=== PATIENT | male | born 1965 | race Hispanic/Latino ===

== ENCOUNTER → 2019-07-23 | Outpatient (CLI) | payer OTHER | END | disposition home or self-care (01) | LOC: RAH 11:18 | PROVIDERS: ATTEND Internal Medicine | DX: J44.9 Chronic obstructive pulmonary disease, unspecified (principal); Q63.1 Lobulated, fused and horseshoe kidney; Q27.8 Other specified congenital malformations of peripheral vascular system | CPT/HCPCS: 71250 ==

== ENCOUNTER → 2019-08-21 | Outpatient (CLI) | payer OTHER | END | disposition home or self-care (01) | LOC: EEVIPCON 11:44 → RAH 11:44 | PROVIDERS: ATTEND Internal Medicine | DX: S83.242A Other tear of medial meniscus, current injury, left knee, initial encounter (principal); M25.462 Effusion, left knee; X58.XXXA Exposure to other specified factors, initial encounter; Y93.89 Activity, other specified; Y92.89 Other specified places as the place of occurrence of the external cause; Y99.8 Other external cause status | CPT/HCPCS: 73721 ==

== ENCOUNTER 2019-10-22 05:24 | Day surgery (SDC) | payer OTHER ==
[2019-10-21 09:58] LABS: BASOPHILS % (AUTO) 0.5 % (0.0-5.0); EOSINOPHILS % (AUTO) 1.9 % (0.0-8.0); HEMATOCRIT 44.8 % (42-54); LYMPHOCYTES % (AUTO) 45.4 % (21.0-51.0); MEAN CORPUSCULAR HEMOGLOBIN 30.1 pg (27.0-33.0); MEAN CORPUSCULAR VOLUME 85.8 fL (79-99); MONOCYTES % (AUTO) 8.1 % (3.0-13.0); NEUTROPHILS % (AUTO) 43.9 % (40.0-77.0); PLATELET COUNT (AUTO) 208 K/uL (130-400); RED BLOOD CELL COUNT(AUTO) 5.22 MIL/uL (4.50-6.20); RED CELL DISTRIBUTION WIDTH 12.6 % (11.0-15.5); WHITE BLOOD COUNT (AUTO) 5.9 K/uL (4.8-10.8)
[2019-10-21 09:59] VITALS: BP 124/79
[2019-10-21 10:11] LABS: CREATININE 0.8 mg/dL (0.5-1.5); POTASSIUM 4.7 mmol/L (3.5-5.1)
[2019-10-21] MEDS: CEFAZOLIN SODIUM 1 GM VIAL IVP SCH (13:30)
[2019-10-22] VITALS (15 sets, daily range): BP systolic 120–139; BP diastolic 68–90
[~2019-10-22] VITALS: Ht 153.7 cm; Wt 70.0 kg
[~2019-10-22 05:24] MED LIST: LACTATED RINGERS 1000ML 1,000 ML IV SCH
[2019-10-22] MEDS ORDERED: SUCCINYLCHOLINE 200MG/10ML SYR ONE (09:28)
[2019-10-22] MEDS ORDERED: LIDOCAINE PF 2% 5ML ABBOJECT ONE ×2 (09:28→09:29)
[2019-10-22] MEDS ORDERED: ONDANSETRON HCL 4 MG/2 ML VIAL ONE (09:28)
[2019-10-22] MEDS ORDERED: DEXAMETHASONE SOD PHOSPHATE 10MG/ML 1ML VIAL ONE (09:28)
[2019-10-22] MEDS ORDERED: NEOSTIGMINE 5MG/5ML SYR IV ONE (09:29)
[2019-10-22] MEDS ORDERED: PROPOFOL 10 MG/ML 20ML VIAL IV ONE (09:29)
[2019-10-22] MEDS ORDERED: ROCURONIUM 10MG/1ML SYR 10 MG/ML ML ONE (09:29)
[2019-10-22] MEDS ORDERED: FENTANYL CITRATE PF 50 MCG/1 ML 2ML VIAL ONE ×2 (09:29→11:05)
[2019-10-22] MEDS ORDERED: MIDAZOLAM HCL 1 MG/ML 2ML VIAL ONE (09:29)
[2019-10-22] MEDS ORDERED: GLYCOPYRROLATE 1 MG/5 ML SYRINGE ONE (09:29)
[2019-10-22] MEDS: CEFAZOLIN SODIUM 1 GM VIAL IVP SCH (09:35)
[2019-10-22] MEDS ORDERED: FENTANYL CITRATE PF 50 MCG/1 ML 5ML AMP IV ONE (09:54)
[2019-10-22] MEDS ORDERED: KETOROLAC TROMETHAMINE 30MG/ML ONE (10:21)
== END 2019-10-22 12:46 | disposition home or self-care (01) ==
LOC: EEVIPCON → DAH 05:24
PROVIDERS: ATTEND Orthopaedic Surgery
DX: M66.262 Spontaneous rupture of extensor tendons, left lower leg (principal); J44.9 Chronic obstructive pulmonary disease, unspecified
CPT/HCPCS: 27380; 36415; 80048; 85025; A4215; A4221; A4222; A4223; A4495; A4510; A4649; A4663; A4930; A5120; A6223; A6260; J0330; J0690; J1100; J1885; J2001 ×2; J2250; J2405; J2704; J2710; J3010 ×3; J3490; J7120 ×2; L1830